=== PATIENT | female | born 2000 | race Caucasian/White ===

== ENCOUNTER 2018-09-22 19:33 | Inpatient (IN) | payer OTHER, SELFPAY ==
[2018-09-22 20:14] LABS: Hematocrit 51.2 % (36.0-45.0)
[2018-09-22] MEDS ORDERED: ONDANSETRON 4 MG/2 ML VIAL ONE (20:15)
[2018-09-22] MEDS ORDERED: NA CHLORIDE 0.9% 1,000 ML ONE ×2 (20:15→21:44)
[2018-09-22 20:17] LABS: Absolute Lymphocytes (CBC) 1.2 K/uL (0.7-4.9); Absolute Monocytes 0.6 K/uL (0.1-1.3); Absolute Neutrophil 20.8 K/uL (1.8-8.0); Basophils % 0.2 % (0-1.3); Lymphocytes % 5.4 % (15.3-44.8); MCV 100.7 fL (80-100); MPV 12.4 fL (7.6-11.3); Monocytes % 2.5 % (3.3-12.3); RBC Red Blood Cell Count 5.08 M/uL (3.86-4.86)
[2018-09-22 20:29] LABS: Urine Blood 2+ (NEG); Urine Glucose 2+ (NEG); Urine Protein 2+ (NEG); Urine Specific Gravity >1.030 (1.005-1.030)
[2018-09-22 20:40] LABS: Urine Bacteria NONE SEEN /HPF (<20); Urine Culture Reflex Order NOT NEEDED
[2018-09-22 20:43] LABS: Albumin 5.1 g/dL (3.4-5.0); Bilirubin Direct 0.1 mg/dL (0-0.2); Bilirubin Total 0.4 mg/dL (0.2-1.0); Potassium 4.8 mmol/L (3.5-5.1); Protein, Total 9.8 g/dL (6.4-8.2)
[2018-09-22] MEDS ORDERED: PROMETHAZINE 25 MG/ML VIAL ONE (21:43)
[2018-09-22] MEDS ORDERED: INSULIN -REGULAR HUMAN 50 UNIT/0.5 ML ML ONE (21:43)
[2018-09-22] MEDS ORDERED: NA CHLORIDE 0.9% 100 ML IV ONE (21:43)
--- NOTE | 2018-09-22 21:47 | RAD REPORT ---
EXAM DESCRIPTION: Jose Single View09/22/2018 8:41 pm CLINICAL HISTORY: Chest pain COMPARISON: 2016 FINDINGS: The lungs appear clear of acute infiltrate. The heart is normal size IMPRESSION: No acute abnormalities displayed
--- NOTE | 2018-09-22 21:47 | RAD REPORT ---
EXAM DESCRIPTION: US - Abdomen Exam Limited - 09/22/2018 8:11 pm CLINICAL HISTORY: Abdominal pain. COMPARISON: None. FINDINGS: The gallbladder wall is not thickened. A gallstone is not seen. The biliary tree is normal caliber. IMPRESSION: Unremarkable gallbladder ultrasound.
--- NOTE | 2018-09-22 21:47 | RAD REPORT ---
EXAM DESCRIPTION: CT - Abdomen Pelvis Wo Contrast - 09/22/2018 9:14 pm CLINICAL HISTORY: Abdominal pain /epigastric pain and vomiting since this morning COMPARISON: None TECHNIQUE: Computed axial tomography of the abdomen and pelvis was obtained. IV and oral contrast we re not requested. All CT scans are performed using dose optimization technique as appropriate and may include automated exposure control or mA/KV adjustment according to patient size. FINDINGS: The evaluation of solid organs, vessels and bowel is limited secondary to the lack of con trast administration. The liver, spleen, pancreas, adrenals and kidneys appear grossly normal. The appendix is upper limits normal caliber. There is no evidence of diverticulitis. An adnexal mass is not seen. Small umbilical hernia. Moderate amount of stool is present up colon A couple of small right lower quadrant mesenteric lymph nodes IMPRESSION: Moderate amount stool throughout the colon Couple of small right lower quadrant mesenteric lymph nodes may indicate a lymphadenitis
[2018-09-22 21:50] LABS: Urine White Blood Cell Casts OK
[2018-09-22 21:51] LABS: Blood Morphology Comment NOT SEEN (NOT SEEN); Platelet Estimate ADEQ; Platelets, Giant FEW
--- NOTE | 2018-09-22 22:00 | EDPHYS ---
Physician Documentation [facility] Name: Cornel Lawrence Age: 18 yrs Sex: Female : 2000 Arrival Date: 09/22/2018 Time: 19:34 Bed 27 Private MD: Surya Romero R ED Physician Jorge Almazan HPI: 09/22 19:52 This 18 yrs old Female presents to ER via Ambulatory with complaints of rn Vomiting, abdominal pain. 19:53 The patient presents to the emergency department with nausea, vomiting, abdominal pain, rn of the epigastric area and right upper quadrant. Onset: The symptoms/episode began/occurred this morning. Possible causes: unknown. The symptoms are aggravated by pressure, The symptoms are alleviated by nothing. Severity of symptoms: At their worst the symptoms were moderate in the emergency department the symptoms have improved. The patient has not experienced similar symptoms in the past. The patient has not recently seen a physician. Reports RUQ and epigastric abd pain assoc with nausea/vomiting, not able to keep anything down, no diarrhea, reports pain has gone away now but still feels sick to her stomach. Never had abd pain like this before. No cough. NO abd surgeries. No hx of gallbladder problems, no acid reflux. . 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 - Social history:: Smoking status: Patient/guardian denies using tobacco. - Ebola Screening: : Patient denies travel to an Ebola-affected area in the 21 days before illness onset. - Family history:: not pertinent. - Hospitalizations: : No recent hospitalization is reported. ROS: 19:53 Constitutional: Negative for fever, chills, and weight loss, Eyes: Negative for injury, rn pain, redness, and discharge, Neck: Negative for injury, pain, and swelling, Cardiovascular: Negative for palpitations, and edema, Respiratory: Negative for shortness of breath, cough, wheezing Abdomen/GI: Negative for diarrhea, and constipation, MS/Extremity: Negative for injury and deformity, Skin: Negative for injury, rash, and discoloration, Neuro: Negative for headache, weakness, numbness, tingling, and seizure. Exam: 19:53 Constitutional: This is a well developed, well nourished patient who is awake, alert, rn and in no acute distress. Head/Face: Normocephalic, atraumatic. Eyes: Pupils equal round and reactive to light, extra-ocular motions intact. ENT: dry MM Neck: Trachea midline, no thyromegaly or masses palpated, and no cervical lymphadenopathy. Supple, full range of motion without nuchal rigidity, or vertebral point tenderness. No Meningismus. Cardiovascular: Regular rate and rhythm with a normal S1 and S2. No gallops, murmurs, or rubs. Normal PMI, no JVD. No pulse deficits. Respiratory: Lungs have equal breath sounds bilaterally, clear to auscultation and percussion. No rales, rhonchi or wheezes noted. No increased work of breathing, no retractions or nasal flaring. Abdomen/GI: Soft, non-tender, with normal bowel sounds. No distension or tympany. No guarding or rebound. No evidence of tenderness throughout. Skin: Warm, dry MS/ Extremity: Pulses equal, no cyanosis. Neurovascular intact. Full, normal range of motion. Equal circumference. Neuro: Awake and alert, GCS 15, oriented to person, place, time, and situation. Cranial nerves II-XII grossly intact. Motor strength 5/5 in all extremities. Sensory grossly intact. Cerebellar exam normal. Vital Signs: 19:39 BP 138 / 89; Pulse 105; Resp 20; Temp 97.2; Pulse Ox 100% on R/A; Weight 68.04 kg (R); aj1 Height 5 ft. 2 in. (157.48 cm) (R); Pain 7/10; 20:45 BP 136 / 92; Pulse 94; Resp 21; Pulse Ox 100% on R/A; rv 21:20 BP 135 / 82; Pulse 91; Resp 23; Pulse Ox 100% on R/A; rv 22:32 BP 138 / 72; Pulse 97; Resp 20; Pulse Ox 100% on R/A; rv 23:21 BP 102 / 88; Pulse 106; Resp 23; Pulse Ox 100% on R/A; rv 19:39 Body Mass Index 27.44 (68.04 kg, 157.48 cm) aj1 MDM: 19:43 Patient medically screened. rn 21:58 Differential diagnosis: Nonspecific abd pain, viral gastroenteritis, gastroenteritis, rn DKA, dehydration, viral syndrome. Data reviewed: vital signs, nurses notes, lab test result(s), radiologic studies, CT scan, ultrasound, and as a result, I will admit patient. Counseling: I had a detailed discussion with the patient and/or guardian regarding: the historical points, exam findings, and any diagnostic results supporting the discharge/admit diagnosis, lab results, radiology results, the need for further work-up and treatment in the hospital. Response to treatment: the patient's symptoms have mildly improved after treatment. Admission orders: after a detailed discussion of the patient's condition and case, the admit orders are written by me. 09/22 19:50 Order name: Basic Metabolic Panel; Complete Time: 21:03 09/22 19:50 Order name: CBC with Diff; Complete Time: 21:55 09/22 19:50 Order name: Hepatic Function; Complete Time: 21: 09/22 19:50 Order name: Lipase; Complete Time: 21: 09/22 19:50 Order name: Urine Microscopic Only; Complete Time: 21: 09/22 20:04 Order name: Urine Dipstick--Ancillary (enter results); Complete Time: 21:03 [facility] 09/22 19:50 Order name: US Abdomen Limited; Complete Time: 21:55 09/22 19:52 Order name: XRAY Chest (1 view); Complete Time: 21:55 09/22 20:04 Order name: Urine --Ancillary (enter results); Complete Time: 21:03 [facility] 09/22 20:37 Order name: CBC Smear Scan; Complete Time: 21:55 [facility] 09/22 21:06 Order name: ABG 09/22 21:10 Order name: Abdomen ; Complete Time: 21:55 [facility] 09/22 19:50 Order name: IV Saline Lock; Complete Time: 20:20 09/22 19:50 Order name: Labs collected and sent; Complete Time: 20:20 09/22 19:50 Order name: Urine Test (obtain specimen); Complete Time: 20:02 09/22 19:50 Order name: Urine Dipstick-Ancillary (obtain specimen); Complete Time: 20:02 rn 09/22 19:52 Order name: EKG; Complete Time: 19:53 rn 09/22 19:52 Order name: EKG - Nurse/Tech; Complete Time: 20:24 rn Administered Medications: 20:15 Drug: Zofran 4 mg Route: IVP; Site: right antecubital; rv 22:34 Follow up: Response: No adverse reaction rv 20:15 Drug: NS 0.9% 1000 ml Route: IV; Rate: 1000 ml; Site: right antecubital; rv 22:34 Follow up: IV Status: Completed infusion; IV Intake: 1000ml rv 20:45 Drug: Insulin Drip - (Insulin Regular Human 100 units, NS 0.9% 100 ml) {Co-Signature: yann aa1 (Mell Li RN).} Route: IV; Rate: calculated rate; Site: right antecubital; 20:45 Drug: Insulin Regular Human 10 units {Co-Signature: aa1 (Mell Li RN).} Route: IVP; rv Site: right antecubital; 22:33 Follow up: Response: No adverse reaction rv 20:45 Drug: Phenergan 12.5 mg Route: IVP; Site: right antecubital; rv 22:33 Follow up: Response: No adverse reaction rv 21:54 Drug: NS 0.9% 1000 ml Route: IV; Rate: 1000 ml; Site: right antecubital; rv Point of Care Testing: Blood Glucose: 23:21 Blood Glucose: 320 mg/dL; rv Ranges: Critical Glucose Levels:Adult <50 mg/dl or >400 mg/dl <40 mg/dl or >180 mg/dl Disposition: 09/22/18 22:00 Hospitalization ordered by Surya Romero for Inpatient Admission. Preliminary diagnosis are Other specified diabetes mellitus with ketoacidosis without coma, Dehydration, Vomiting. - Bed requested for Intensive Care Unit. - Status is Inpatient Admission. rv - Condition is Serious. - Problem is new. - Symptoms have improved. UTI on Admission? No Critical care time excluding procedures: 22:01 Critical care time: Bedside Care: 25 minutes, Consultation: 5 minutes, Family rn Intervention: 5 minutes. Total time: 35 minutes Signatures: Dispatcher [employer] Angela Lr RN RN aj1 Jorge Almazan MD MD rn Martinez, Eric em1 Jeremy Astudillo RN RN rv Mell Li RN aa1 Corrections: (The following items were deleted from the chart) 21:10 19:51 Abdomen Pelvis W Con+CT.RAD.BRZ ordered. EDMS EDMS 23:03 22:00 Hospitalization Ordered by Surya Romero MD for Inpatient Admission. Preliminary em1 diagnosis is Other specified diabetes mellitus with ketoacidosis without coma; Dehydration; Vomiting. Bed requested for Intensive Care Unit. Status is Inpatient Admission. Condition is Serious. Problem is new. Symptoms have improved. UTI on Admission? No. rn 23:52 23:03 09/22/2018 22:00 Hospitalization Ordered by Surya Romero MD for Inpatient rv Admission. Preliminary diagnosis is Other specified diabetes mellitus with ketoacidosis without coma; Dehydration; Vomiting. Bed requested for Intensive Care Unit. Status is Inpatient Admission. Condition is Serious. Problem is new. Symptoms have improved. UTI on Admission? No. em1
--- NOTE | 2018-09-22 22:00 | ER ---
Nurse's Notes [facility] Name: Cornel Lawrence Age: 18 yrs Sex: Female : 2000 Arrival Date: 09/22/2018 Time: 19:34 Bed 27 Private MD: Surya Romero R Diagnosis: Other specified diabetes mellitus with ketoacidosis without coma;Dehydration;Vomiting Presentation: 09/22 19:35 Presenting complaint: Patient states: Epigastric pain and vomiting that started this aj1 morning. Denies fever. Denies diarrhea. Reports that she checked her blood sugar today and it was 100 at 1400 today. Transition of care: patient was not received from another setting of care. Onset of symptoms was September 22, 2018. Risk Assessment: Do you want to hurt yourself or someone else? Patient reports no desire to harm self or others. Initial Sepsis Screen: Does the patient meet any 2 criteria? HR > 90 bpm. No. Patient's initial sepsis screen is negative. Does the patient have a suspected source of infection? Yes: Acute abdominal pain. Care prior to arrival: None. 19:35 Method Of Arrival: Ambulatory aj1 19:35 Acuity: KEILA 3 aj1 Triage Assessment: 19:39 General: Appears in no apparent distress. uncomfortable, Behavior is calm, cooperative, aj1 appropriate for age. Pain: Complains of pain in epigastric area Pain currently is 7 out of 10 on a pain scale. Neuro: Level of Consciousness is awake, alert, obeys commands. Cardiovascular: Patient's skin is warm and dry. Respiratory: Airway is patent Respiratory effort is even, unlabored, Respiratory pattern is regular, symmetrical. GI: Reports upper abdominal pain, nausea, vomiting. 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 - Social history:: Smoking status: Patient/guardian denies using tobacco. - Ebola Screening: : Patient denies travel to an Ebola-affected area in the 21 days before illness onset. - Family history:: not pertinent. - Hospitalizations: : No recent hospitalization is reported. Screenin:21 Abuse screen: Denies threats or abuse. Denies injuries from another. Nutritional rv screening: No deficits noted. Tuberculosis screening: No symptoms or risk factors identified. Fall Risk None identified. Assessment: 20:00 General: Appears in no apparent distress. uncomfortable, Behavior is calm, appropriate rv for age. 20:00 Pain: Complains of pain in epigastric area. Neuro: Level of Consciousness is awake, rv alert, obeys commands, Oriented to person, place, time, situation. Cardiovascular: Capillary refill < 3 seconds. Respiratory: Airway is patent. GI: Abdomen is flat, Reports lower abdominal pain. : No signs and/or symptoms were reported regarding the genitourinary system. EENT: No signs and/or symptoms were reported regarding the EENT system. Derm: Skin is intact. Musculoskeletal: No signs and/or symptoms reported regarding the musculoskeletal system. 21:00 Reassessment: Patient appears in no apparent distress at this time. Patient and/or rv family updated on plan of care and expected duration. Pain level reassessed. Patient is alert, oriented x 3, equal unlabored respirations, skin warm/dry/pink. 22:00 Reassessment: Patient appears in no apparent distress at this time. Patient and/or rv family updated on plan of care and expected duration. Pain level reassessed. Patient is alert, oriented x 3, equal unlabored respirations, skin warm/dry/pink. 23:00 Reassessment: Patient appears in no apparent distress at this time. Patient and/or rv family updated on plan of care and expected duration. Pain level reassessed. Patient is alert, oriented x 3, equal unlabored respirations, skin warm/dry/pink. Vital Signs: 19:39 BP 138 / 89; Pulse 105; Resp 20; Temp 97.2; Pulse Ox 100% on R/A; Weight 68.04 kg (R); aj1 Height 5 ft. 2 in. (157.48 cm) (R); Pain 7/10; 20:45 BP 136 / 92; Pulse 94; Resp 21; Pulse Ox 100% on R/A; rv 21:20 BP 135 / 82; Pulse 91; Resp 23; Pulse Ox 100% on R/A; rv 22:32 BP 138 / 72; Pulse 97; Resp 20; Pulse Ox 100% on R/A; rv 23:21 BP 102 / 88; Pulse 106; Resp 23; Pulse Ox 100% on R/A; rv 19:39 Body Mass Index 27.44 (68.04 kg, 157.48 cm) aj1 ED Course: 19:34 Patient arrived in ED. al2 19:34 Surya Romero MD is Private Physician. al2 19:38 Triage completed. aj1 19:39 Arm band placed on Patient placed in an exam room. aj1 19:43 Jorge Almazan MD is Attending Physician. rn 20:00 Inserted saline lock: 20 gauge in right antecubital area, using aseptic technique. rv Blood collected. 20:00 Initial lab(s) drawn, by me, sent to lab. rv 20:11 US Abdomen Limited In Process Unspecified. EDMS 20:14 Radiology exam delayed due to lab results not completed at this time. (BUN/Creatinine) vr test not completed at this time. 20:21 Patient has correct armband on for positive identification. Bed in low position. Call rv light in reach. Side rails up X 1. Adult w/ patient. Pulse ox on. NIBP on. 20:21 hand printed circuit board assembler on. jp3 20:27 Warm blanket given. pt given socks. aa1 20:27 EKG done, by ED staff, reviewed by Jorge Almazan MD. aa1 20:41 XRAY Chest (1 view) In Process Unspecified. EDMS 21:14 Abdomen In Process Unspecified. EDMS 21:59 Surya Romero MD is Hospitalizing Provider. rn 22:32 Awaiting bed assignment. rv 23:28 No provider procedures requiring assistance completed. Patient admitted, IV remains in rv place. intact. Administered Medications: 20:15 Drug: Zofran 4 mg Route: IVP; Site: right antecubital; rv 22:34 Follow up: Response: No adverse reaction rv 20:15 Drug: NS 0.9% 1000 ml Route: IV; Rate: 1000 ml; Site: right antecubital; rv 22:34 Follow up: IV Status: Completed infusion; IV Intake: 1000ml rv 20:45 Drug: Insulin Drip - (Insulin Regular Human 100 units, NS 0.9% 100 ml) {Co-Signature: rv aa1 (Mell Juneau RN).} Route: IV; Rate: calculated rate; Site: right antecubital; 20:45 Drug: Insulin Regular Human 10 units {Co-Signature: aa1 (Mell Li RN).} Route: IVP; rv Site: right antecubital; 22:33 Follow up: Response: No adverse reaction rv 20:45 Drug: Phenergan 12.5 mg Route: IVP; Site: right antecubital; rv 22:33 Follow up: Response: No adverse reaction rv 21:54 Drug: NS 0.9% 1000 ml Route: IV; Rate: 1000 ml; Site: right antecubital; rv Point of Care Testing: Blood Glucose: 23:21 Blood Glucose: 320 mg/dL; rv Ranges: Intake: 22:34 IV: 1000ml; Total: 1000ml. rv Outcome: 22:00 Decision to Hospitalize by Provider. rn 23:28 Admitted to ICU accompanied by nurse, accompanied by tech, via stretcher, room 2, on rv monitor, with chart. 23:28 Condition: stable 23:52 Patient left the ED. rv Signatures: Dispatcher [employer] EDMS Angela Riley RN RN aj1 Mell Li RN RN aa1 Jorge Almazan MD MD rn Davis, Victoria vr Love, Angelica al2 Vicente, Ronaldo RN RN Paul Tovar jp3 Mell Li RN aa1 Corrections: (The following items were deleted from the chart) 19:39 19:35 Presenting complaint: Patient states: Epigastric pain and vomiting that started aj1 this morning. Denies fever. Denies diarrhea. aj1
[2018-09-22 22:17] LABS: Blood Gas Oxyhemoglobin 94.2 % (94-97); Blood O2 Saturation 96.6 % (92-98.5)
[2018-09-22] MEDS ORDERED: ONDANSETRON 4 MG/2 ML VIAL IV PRN (23:30)
[2018-09-22] MEDS ORDERED: NACHLORIDE 0.45% 1,000 ML with POTASSIUM CL 20 MEQ IV SCH ×2 (23:30)
[2018-09-22] MEDS ORDERED: INSULIN -REGULAR HUMAN 100 UNIT in NA CHLORIDE 0.9% 100 ML IV SCH (23:30)
[2018-09-23] MEDS: D5.45NS W/KCL 20MEQ 1,000 ML IV SCH ×5 (00:02→19:30)
[2018-09-23 00:48] LABS: BUN Blood Urea Nitrogen 17 mg/dL (7-18); Glucose Level 246 mg/dL (74-106); Potassium 5.5 mmol/L (3.5-5.1); Sodium Level 143 mmol/L (136-145)
[2018-09-23 01:09] LABS: Bicarbonate 3 mmol/L (21-32)
[2018-09-23 03:13] LABS: BUN Blood Urea Nitrogen 15 mg/dL (7-18); Bicarbonate 8 mmol/L (21-32); Glucose Level 240 mg/dL (74-106); Potassium 5.2 mmol/L (3.5-5.1); Sodium Level 140 mmol/L (136-145)
[2018-09-23 05:27] LABS: BUN Blood Urea Nitrogen 13 mg/dL (7-18); Bicarbonate 10 mmol/L (21-32); Glucose Level 218 mg/dL (74-106); Potassium 4.6 mmol/L (3.5-5.1); Sodium Level 139 mmol/L (136-145)
[2018-09-23 06:32] LABS: BUN Blood Urea Nitrogen 13 mg/dL (7-18); Bicarbonate 12 mmol/L (21-32); Glucose Level 220 mg/dL (74-106); Potassium 4.2 mmol/L (3.5-5.1); Sodium Level 139 mmol/L (136-145)
--- NOTE | 2018-09-23 07:14 | EKG ---
Test Date: 2018-09-22 Test Time: 20:21:58 Commercial Loan Administrator: MOHINI MEASUREMENT RESULTS: Intervals: Rate: 86 SD: 132 QRSD: 82 QT: 404 QTc: 483 [place]: P: 76 SD: 132 QRS: 91 T: 68 INTERPRETIVE STATEMENTS: Normal sinus rhythm Biatrial enlargement Rightward axis Prolonged QT Abnormal ECG Compared to ECG 11/02/2016 12:11:05 Atrial abnormality now present Right-axis deviation now present T-wave abnormality no longer present Electronically Signed On 09-23-18 07:13:37 POLYGRAPH OPERATOR by Rocky Murphy
[2018-09-23] MEDS ORDERED: INFLUENZA VACCINE (for 3y+) 0.5 ML DOSE IMVAC ONE (08:00)
[2018-09-23] MEDS ORDERED: NOREPINEPHRINE 4 MG in D5W 250 ML IV PRN (08:24)
[2018-09-23] MEDS ORDERED: GLUCAGON 1 MG/VIAL IM PRN (09:50)
[2018-09-23] MEDS ORDERED: INSULIN GLARGINE 100 UNITS/ML SQ ONE (09:51)
[2018-09-23 10:16] LABS: Potassium 4.1 mmol/L (3.5-5.1)
[2018-09-23] MEDS: NACHLORIDE 0.45% 1,000 ML IV SCH (21:52)
--- NOTE | 2018-09-24 04:18 | HP ---
Date of Admission: 09/22/2018 Chief Complaint: Diabetic ketoacidosis. History Of Present Illness: A 18-year-old female who was brought to the emergency room because of ab dominal cramps, chest pain, multiple complaints. The patient had evaluation done and she was found t o have severe diabetic ketoacidosis. The patient claims that she has been taking her insulin through her insulin pump. From her history, it was not clear why she went into diabetic ketoacidosis. Past Medical History: Type 1 diabetes, history of urinary tract infection and depression. Family History: Noncontributory. Personal History: The patient has allergies to clindamycin and Bactrim. Review of Systems: The patient denied any fever, chills, rigors, or hemoptysis. Physical Examination: General: Revealed a 18-year-old female, dehydrated. Vital Signs: Blood pressure 110/70, pulse 102. HEENT: Otherwise negative. Neck: Supple. JVD negative. Chest: Clear. Heart: Regular. Abdomen: Soft. No palpable mass. Extremities: No edema. Laboratory Data: White count at admission was 22.6 with a hemoglobin of 16.3. Chem profile showed a severe metabolic acidosis with bicarb of 8, BUN 19, creatinine 1.7, normal lipase. CAT scan of the abdomen, ultrasound of the abdomen, and chest x-ray were negative. Assessment: 1.Diabetic ketoacidosis. 2.Type 1 diabetes, on insulin pump. Plan: The patient received insulin IV infusion. The patient is doing much better today. She is estela erating the diet. She will put on insulin pump and she will be observed overnight. Additional dose of insulin will be given. ENA/JAMES Voice ID: [id number]
[2018-09-24] MEDS: D50W 25 GM/50 ML SYRINGE IV PRN (04:20)
[2018-09-24] MEDS ORDERED: GLUCAGON 1 MG/VIAL IM PRN (08:12)
[2018-09-24] MEDS ORDERED: D50W 25 GM/50 ML SYRINGE IV PRN (08:12)
[2018-09-24 08:37] LABS: Absolute Monocytes 0.7 K/uL (0.1-1.3); Absolute Neutrophil 6.6 K/uL (1.8-8.0); Basophils % 0.2 % (0-1.3); Eosinophils % 0.7 % (0-4.4); Hematocrit 38.3 % (36.0-45.0); Lymphocytes % 28.4 % (15.3-44.8); MCH 32.6 pg (27.0-35.0); MCV 93.7 fL (80-100); MPV 11.4 fL (7.6-11.3); Monocytes % 7.2 % (3.3-12.3); RBC Red Blood Cell Count 4.09 M/uL (3.86-4.86)
[2018-09-24] MEDS: FLUOXETINE 20 MG CAP PO SCH (08:41)
[2018-09-24] MEDS: MUCINEX DM 12HR.SR TAB PO PRN (08:41)
[2018-09-24] MEDS: INSULIN -REGULAR HUMAN 50 UNIT/0.5 ML ML SQ SCH ×3 (11:30→21:00)
[2018-09-24] MEDS: NACHLORIDE 0.45% 1,000 ML IV SCH ×2 (11:31→23:24)
[2018-09-24] MEDS ORDERED: INFLUENZA VACCINE (for 3y+) 0.5 ML DOSE IMVAC ONE (13:00)
[2018-09-25] MEDS: MUCINEX DM 12HR.SR TAB PO PRN (00:25)
--- NOTE | 2018-09-25 02:48 | PN ---
The patient is out of ketoacidosis. She is put on insulin pump. Her blood sugar actually has been o n the low side. She is being watched for another 24 hours. If she is stable, she will be discharged in a.m. ENA/JAMES Voice ID: [id number] Report ID: [id number]
[2018-09-25] MEDS: D50W 25 GM/50 ML SYRINGE IV PRN (03:43)
[2018-09-25] MEDS: INSULIN -REGULAR HUMAN 50 UNIT/0.5 ML ML SQ SCH (07:30)
[2018-09-25] MEDS: FLUOXETINE 20 MG CAP PO SCH (08:17)
== END 2018-09-25 10:12 | disposition home or self-care (01) | DRG 639 ==
LOC: ER 19:33 → ERHOLD 22:05 → 3RD-ICU 23:27 → 2ND 09-24 14:05
PROVIDERS: ADMIT Internal Medicine; ATTEND Internal Medicine
DX: E10.10 Type 1 diabetes mellitus with ketoacidosis without coma (principal); Z96.41 Presence of insulin pump (external) (internal); Z79.4 Long term (current) use of insulin; E86.0 Dehydration
CPT/HCPCS: 36415; 71045; 74176; 76705; 80048; 80076; 81003; 81015; 81025; 82010; 82805; 82962; 83690; 83930; 85025; 93005; 96361; 96374; 96375; 99285; G0008; J2405; J2550; J7030; J7060; Q2035

== ENCOUNTER 2018-12-27 19:01 | Emergency (ER) | payer OTHER ==
--- NOTE | 2018-12-27 19:18 | ER ---
Nurse's Notes [facility] Name: Cornel Lawrence Age: 18 yrs Sex: Female : 2000 Arrival Date: 12/27/2018 Time: 19:03 Bed Waiting Private MD: Surya Romero R Diagnosis: Encounter for Medication Refill Presentation: 12/27 19:06 Presenting complaint: Patient states: I need a prescription for Humalog. Transition of ed1 care: patient was not received from another setting of care. Onset of symptoms was December 27, 2018. Risk Assessment: Do you want to hurt yourself or someone else? Patient reports no desire to harm self or others. Initial Sepsis Screen: Does the patient meet any 2 criteria? No. Patient's initial sepsis screen is negative. Does the patient have a suspected source of infection? No. Patient's initial sepsis screen is negative. Care prior to arrival: None. 19:06 Method Of Arrival: Ambulatory ed1 19:06 Acuity: KEILA 5 ed1 Triage Assessment: 19:08 General: Appears in no apparent distress. comfortable, Behavior is calm, cooperative. ed1 Pain: Denies pain. 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 - Social history:: Smoking status: Patient/guardian denies using tobacco. - Ebola Screening: : Patient negative for fever greater than or equal to 101.5 degrees Fahrenheit, and additional compatible Ebola Virus Disease symptoms Patient denies exposure to infectious person Patient denies travel to an Ebola-affected area in the 21 days before illness onset No symptoms or risks identified at this time. Screenin:10 Abuse screen: Denies threats or abuse. Denies injuries from another. Nutritional ed1 screening: No deficits noted. Tuberculosis screening: No symptoms or risk factors identified. Fall Risk None identified. Assessment: 19:10 General: Appears in no apparent distress. Behavior is calm, cooperative. Pain: Denies ed1 pain. Neuro: Level of Consciousness is awake, alert, obeys commands, Oriented to person, place, time, situation. Cardiovascular: Denies chest pain, Heart tones S1 S2 present. Respiratory: Airway is patent Respiratory effort is even, unlabored, Respiratory pattern is regular, symmetrical, Breath sounds are clear bilaterally. GI: No signs and/or symptoms were reported involving the gastrointestinal system. : No signs and/or symptoms were reported regarding the genitourinary system. EENT: No signs and/or symptoms were reported regarding the EENT system. Derm: Skin is intact, is healthy with good turgor, Skin is dry, Skin is normal, Skin temperature is warm. Musculoskeletal: Circulation, motion, and sensation intact. Vital Signs: 19:08 BP 129 / 98; Pulse 71; Resp 16; Temp 98.7; Pulse Ox 100% on R/A; Weight 58.97 kg; ed1 Height 5 ft. 2 in. (157.48 cm); Pain 0/10; 19:08 Body Mass Index 23.78 (58.97 kg, 157.48 cm) ed1 ED Course: 19:03 Patient arrived in ED. mr 19:03 Surya Romero MD is Private Physician. mr 19:06 Triage completed. ed1 19:08 Arm band placed on left wrist. ed1 19:10 Patient has correct armband on for positive identification. ed1 19:10 No provider procedures requiring assistance completed. Patient did not have IV access ed1 during this emergency room visit. 19:12 Claude Quinonez PA is [facility]. jr8 19:12 Jomar Groves MD is Attending Physician. jr8 19:16 Jojo Harper, ENID is Primary Nurse. ed1 Administered Medications: No medications were administered Outcome: 19:16 Discharged to home ambulatory. ed1 19:16 Condition: good 19:16 Discharge instructions given to patient, Instructed on discharge instructions, follow up and referral plans. medication usage, Demonstrated understanding of instructions, follow-up care, medications, Prescriptions given X 1 written prescription 19:17 Discharge ordered by . jr8 19:20 Patient left the ED. ed1 Signatures: Michael Shana mr Jojo Harper, RN RN ed1 Claude Quinonez PA PA jrCelestine
--- NOTE | 2018-12-27 19:18 | EDPHYS ---
Physician Documentation [facility] Name: Cornel Lawrence Age: 18 yrs Sex: Female : 2000 Arrival Date: 12/27/2018 Time: 19:03 Bed Waiting Private MD: Surya Romero R ED Physician Jomar Groves HPI: 12/27 19:18 This 18 yrs old Female presents to ER via Ambulatory with complaints of jr8 Medication Refill. 19:18 The patient presents to the emergency department requesting refill(s) for: Insulin. The jr8 patient chronically suffers from diabetes. The patient has not experienced similar symptoms in the past. The patient has not recently seen a physician. 19:18 Ran out of insulin in pump. Has not been able to get into her PCP for refill . 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 - Social history:: Smoking status: Patient/guardian denies using tobacco. - Ebola Screening: : Patient negative for fever greater than or equal to 101.5 degrees Fahrenheit, and additional compatible Ebola Virus Disease symptoms Patient denies exposure to infectious person Patient denies travel to an Ebola-affected area in the 21 days before illness onset No symptoms or risks identified at this time. ROS: 19:18 Constitutional: Negative for fever, chills, and weight loss. jr8 19:18 All other systems are negative. Exam: 19:18 Eyes: Pupils equal round and reactive to light, extra-ocular motions intact. Lids and jr8 lashes normal. Conjunctiva and sclera are non-icteric and not injected. Cornea within normal limits. Periorbital areas with no swelling, redness, or edema. ENT: Nares patent. No nasal discharge, no septal abnormalities noted. Tympanic membranes are normal and external auditory canals are clear. Oropharynx with no redness, swelling, or masses, exudates, or evidence of obstruction, uvula midline. Mucous membranes moist. Cardiovascular: Regular rate and rhythm with a normal S1 and S2. No gallops, murmurs, or rubs. Normal PMI, no JVD. No pulse deficits. Respiratory: Lungs have equal breath sounds bilaterally, clear to auscultation and percussion. No rales, rhonchi or wheezes noted. No increased work of breathing, no retractions or nasal flaring. Abdomen/GI: Soft, non-tender, with normal bowel sounds. No distension or tympany. No guarding or rebound. No evidence of tenderness throughout. Skin: Warm, dry with normal turgor. Normal color with no rashes, no lesions, and no evidence of cellulitis. MS/ Extremity: Pulses equal, no cyanosis. Neurovascular intact. Full, normal range of motion. Neuro: Awake and alert, GCS 15, oriented to person, place, time, and situation. Cranial nerves II-XII grossly intact. Motor strength 5/5 in all extremities. Sensory grossly intact. Cerebellar exam normal. Normal gait. Vital Signs: 19:08 BP 129 / 98; Pulse 71; Resp 16; Temp 98.7; Pulse Ox 100% on R/A; Weight 58.97 kg; ed1 Height 5 ft. 2 in. (157.48 cm); Pain 0/10; 19:08 Body Mass Index 23.78 (58.97 kg, 157.48 cm) ed1 MDM: 19:17 Data reviewed: vital signs, nurses notes. Data interpreted: Pulse oximetry: on room air jr8 is 100 %. Interpretation: normal. Counseling: I had a detailed discussion with the patient and/or guardian regarding: the historical points, exam findings, and any diagnostic results supporting the discharge/admit diagnosis, the need for outpatient follow up, a family practitioner, to return to the emergency department if symptoms worsen or persist or if there are any questions or concerns that arise at home. 19:17 Patient medically screened. jr8 Administered Medications: No medications were administered Disposition: 22:49 Co-signature as Attending Physician, Jomar Groves MD I agree with the assessment and kdr plan of care. Disposition: 12/27/18 19:17 Discharged to Home. Impression: Encounter for Medication Refill . - Condition is Stable. - Discharge Instructions: Insulin Pumps. - Medication Reconciliation Form, Thank You Letter, Antibiotic Education, Prescription Opioid Use form. - Follow up: Private Physician; When: As needed; Reason: Recheck today's complaints, Continuance of care, Re-evaluation by your physician. - Problem is new. - Symptoms are unchanged. Signatures: Jomar Groves MD MD [facility] Jojo Harper RN RN ed1 Claude Quinonez PA PA jr8 Corrections: (The following items were deleted from the chart) 19:20 19:17 12/27/2018 19:17 Discharged to Home. Impression: Encounter for Medication Refill ed1 . Condition is Stable. Forms are Medication Reconciliation Form, Thank You Letter, Antibiotic Education, Prescription Opioid Use. Follow up: Private Physician; When: As needed; Reason: Recheck today's complaints, Continuance of care, Re-evaluation by your physician. Problem is new. Symptoms are unchanged. jr8
== END 2018-12-27 19:20 | disposition home or self-care (01) ==
LOC: ER 19:01
DX: Z76.0 Encounter for issue of repeat prescription (principal); E11.9 Type 2 diabetes mellitus without complications; Z79.4 Long term (current) use of insulin; Z88.1 Allergy status to other antibiotic agents; Z88.3 Allergy status to other anti-infective agents
CPT/HCPCS: 99282